=== PATIENT | male | born 1970 | race Caucasian/White ===

== ENCOUNTER 2021-07-08 08:40 | Day surgery (SDC) | payer BC ==
[2021-07-08] MEDS ORDERED: Propofol 200 MG/20 ML SDV IV ONE (08:41)
[2021-07-08] MEDS ORDERED: Lactated Ringers 1,000 ML IV SCH (09:00)
[2021-07-08] MEDS ORDERED: Sodium Chloride 0.9% 10 ML Syringe FLUSH PRN (09:00)
[2021-07-08] MEDS ORDERED: Propofol 200 MG/20 ML SDV ONE ×2 (09:39→10:33)
[2021-07-08] MEDS ORDERED: Midazolam 1 MG/ML 2 ML SDV ONE (09:39)
== END 2021-07-08 11:35 | disposition home or self-care (01) ==
LOC: KA.SDS 08:40
PROVIDERS: ATTEND Family Medicine
DX: Z12.11 Encounter for screening for malignant neoplasm of colon (principal); D12.5 Benign neoplasm of sigmoid colon; M72.2 Plantar fascial fibromatosis; Z80.0 Family history of malignant neoplasm of digestive organs
CPT/HCPCS: 00812; J2250; J2704; J7120

== ENCOUNTER 2022-01-07 09:52 | Day surgery (SDC) | payer BC ==
[2022-01-07] MEDS ORDERED: Sodium Chloride 0.9% 10 ML Syringe FLUSH PRN (10:00)
[2022-01-07] MEDS: Lactated Ringers 1,000 ML IV SCH (10:18)
[2022-01-07] MEDS ORDERED: Midazolam 1 MG/ML 2 ML SDV ONE (11:15)
[2022-01-07] MEDS ORDERED: Propofol 200 MG/20 ML SDV ONE (11:15)
== END 2022-01-07 12:58 | disposition home or self-care (01) ==
LOC: KA.SDS 09:52
PROVIDERS: ATTEND Surgery
DX: Z12.11 Encounter for screening for malignant neoplasm of colon (principal); Z86.010 Personal history of colon polyps; Z79.899 Other long term (current) drug therapy; Z98.890 Other specified postprocedural states; Z80.0 Family history of malignant neoplasm of digestive organs
CPT/HCPCS: 00812; J2250; J2704; J7120

== ENCOUNTER 2022-02-13 23:21 | Emergency (ER) | payer BC ==
[2022-02-13] MEDS ORDERED: Albuterol/Ipratropium 3.0-0.5 MG/3 ML Neb Soln NEB ONE (23:45)
[2022-02-13] MEDS ORDERED: Albuterol/Ipratropium 3.0-0.5 MG/3 ML Neb Soln ONE (23:46)
[2022-02-13] MEDS ORDERED: predniSONE 20 MG Tab PO ONE (23:49)
[2022-02-14 00:21] LABS: RESPIRATORY SYNCYTIAL VIR NAA NEGATIVE (NEGATIVE)
[2022-02-14 00:25] LABS: CORONAVIRUS COVID-19 NAA NEGATIVE (NEGATIVE)
== END 2022-02-14 00:30 | disposition home or self-care (01) ==
LOC: KA.ED 23:21
DX: J10.1 Influenza due to other identified influenza virus with other respiratory manifestations (principal); R06.2 Wheezing; R05.1 Acute cough; Z91.048 Other nonmedicinal substance allergy status; Z79.899 Other long term (current) drug therapy; Z20.822 Contact with and (suspected) exposure to COVID-19
CPT/HCPCS: 0241U; 71046; 94640; 99284; J7512; J7620-GY

== ENCOUNTER 2024-01-05 09:27 | Day surgery (SDC) | payer BC ==
[2024-01-05] MEDS ORDERED: Sodium Chloride 0.9% 10 ML Syringe FLUSH PRN (09:30)
[2024-01-05] MEDS: Lactated Ringers 1,000 ML IV SCH (09:40)
[2024-01-05] MEDS ORDERED: Midazolam 1 MG/ML 2 ML SDV ONE ×2 (10:26→10:46)
[2024-01-05] MEDS ORDERED: Propofol 200 MG/20 ML SDV ONE ×2 (10:26→10:47)
== END 2024-01-05 12:39 | disposition home or self-care (01) ==
LOC: KA.SDS 09:27
PROVIDERS: ATTEND Surgery
DX: Z12.11 Encounter for screening for malignant neoplasm of colon (principal); D12.4 Benign neoplasm of descending colon; Z86.0100 Personal history of colon polyps, unspecified; E66.01 Morbid (severe) obesity due to excess calories; Z68.41 Body mass index [BMI] 40.0-44.9, adult; Z80.0 Family history of malignant neoplasm of digestive organs; Z79.899 Other long term (current) drug therapy
CPT/HCPCS: 00811; J2250; J2704; J3490; J7120

== ENCOUNTER 2024-02-16 16:37 | Emergency (ER) | payer BC ==
[2024-02-16 17:15] LABS: BASOPHILS ABSOLUTE AUTO 0.02 10^3/uL (0.00-0.10); BASOPHILS PERCENT AUTO 0.2 % (0.0-1.0); EOSINOPHILS ABSOLUTE AUTO 0.22 10^3/uL (0.10-0.30); EOSINOPHILS PERCENT AUTO 2.4 % (1.0-3.0); HEMATOCRIT 46.1 % (40.0-52.0); HEMOGLOBIN 15.9 g/dL (13.0-17.0); IMMATURE GRAN ABSOLUTE AUTO 0.04 10^3/uL (0.00-0.04); IMMATURE GRAN PERCENT AUTO 0.4 % (0.0-0.4); LYMPHOCYTES ABSOLUTE AUTO 2.22 10^3/uL (1.00-4.00); LYMPHOCYTES PERCENT AUTO 23.9 % (20.0-40.0); MEAN CORPUSCULAR HEMOGLOBIN 29.3 pg (27.0-31.0); MEAN CORPUSCULAR HGB CONC 34.5 g/dL (32.0-36.0); MEAN CORPUSCULAR VOLUME 85.1 fL (82.0-92.0); MEAN PLATELET VOLUME 8.1 fL (7.4-10.4); MONOCYTES ABSOLUTE AUTO 1.14 10^3/uL (0.10-0.80); MONOCYTES PERCENT AUTO 12.3 % (2.0-8.0); NEUTROPHILS ABSOLUTE AUTO 5.65 10^3/uL (2.50-7.00); NEUTROPHILS PERCENT AUTO 60.8 % (50.0-70.0); PLATELET COUNT,PLT 260 10^3/uL (150-400); RED BLOOD CELL COUNT 5.42 10^6/uL (4.50-6.00); RED CELL DISTRIBUTION WIDTH 12.6 % (11.5-14.5); WHITE BLOOD CELL COUNT,WBC 9.29 10^3/uL (5.00-10.00)
[2024-02-16 17:31] LABS: ALANINE AMINOTRANSFERASE,ALT 25 U/L (14-63); ALBUMIN 3.84 g/dL (3.40-5.00); ALKALINE PHOSPHATASE 79 U/L (46-116); ANION GAP 12.5 mmol/L (5-15); BILIRUBIN TOTAL 0.7 mg/dL (0.2-1.0); BLOOD UREA NITROGEN,BUN 11 mg/dL (7-18); C-REACTIVE PROTEIN 0.85 mg/dL (0.00-0.50); CARBON DIOXIDE,CO2 27.4 mmol/L (21.0-32.0); CHLORIDE,CL 100 mmol/L (98-107); CREATININE 0.88 mg/dL (0.51-1.17); EST CRCL DRUG DOSING (CG) 117.36 mL/min; GLUCOSE RANDOM 91 mg/dL (70-140); POTASSIUM,K 3.9 mmol/L (3.5-5.1); PROTEIN TOTAL,TP 7.1 g/dL (6.4-8.2); SODIUM,NA 136 mmol/L (136-145)
[2024-02-16 17:32] LABS: ASPARTATE AMNIOTRANSFERASE,AST < 9 U/L (15-37); ESTIMATED GFR 103 mL/min (>=60)
== END 2024-02-16 19:55 | disposition home or self-care (01) ==
LOC: KA.ED 16:37
DX: H81.10 Benign paroxysmal vertigo, unspecified ear (principal); G51.0 Bell's palsy; J45.909 Unspecified asthma, uncomplicated; Z86.16 Personal history of COVID-19; Z79.899 Other long term (current) drug therapy; Z91.048 Other nonmedicinal substance allergy status
CPT/HCPCS: 70450; 80053; 83605; 85025; 86140; 99285